=== PATIENT | male | born 2000 | race African-American/Black ===

== ENCOUNTER 2025-02-13 18:27 | Inpatient (IN) | payer MEDICAID, SELFPAY ==
[2025-02-13 18:36] VITALS: BP 149/87; PULSE 62; RESP 19; TEMP 36.9; O2SAT 97
--- NOTE | 2025-02-13 18:48 | PD.EDHA ---
ED Headache RME/HPI General Chief Complaint: Headache Stated Complaint: R SIDED FACIAL PAIN Time Seen by Provider: 02/13/25 20:03 Arrival date/time: 02/13/25 18:27 RME / HPI RME / HPI Narrative: Dr. 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 No nausea, vomiting, or photo sensitivity. No neck stiffness. No paresthesias or UE/LE weakness. No previous similar episodes. PMH includes Crohn's disease, childhood asthma. PSH includes appendectomy, ACLS repair. No illicit drug or alcohol use. NKDA. Related Data Allergies Allergy/AdvReac Type Severity Reaction Status Date / Time No Known Allergies Allergy Verified 02/13/25 18:31 Review of Systems Review of Systems Systems Reviewed: All systems reviewed, normal except as documented Past Medical History Social History SMOKING STATUS: Current every day smoker ED Exam Narrative Physical exam: GENERAL APPEARANCE: alert and oriented x 4, nontoxic, well-developed, well-nourished, complains of right periorbital headache and visual disturbance, no acute distress VITALS: All vitals were reviewed and the pulse ox is 97% on room air, which is normal according to my interpretation. HEENT: Normocephalic, atraumatic; tenderness to palpation along the right TMJ joint; pupils equal, round, reactive to light; EOMI; allodynia to the right temporal region, manual tonometry is normal, no nystagmus, optic disc margins are sharp, visual mcdowell are grossly normal; mucous membranes pink, moist; oropharynx clear NECK: Supple LUNGS: CTABL; no wheezes, no rales, no rhonchi HEART: Regular rate, regular rhythm; normal S1, S2; no murmurs ABDOMEN: non distended; soft, no tenderness BACK: no CVA tenderness EXTREMITIES: atraumatic; no edema NEUROLOGIC: awake; alert and oriented x4; cranial nerves II-XII grossly intact; no focal sensory or motor deficits PSYCHIATRIC: appropriate mood and affect SKIN: warm, dry, normal color; no rashes Course Course Course Narrative: 184: Stroke alert initiated. Quality Measures none Orders Category Date Time Status Bedside Blood Glucose NOW Care 02/13/25 18:50 Active Pharmacy Services Representative NOW Care 02/13/25 18:50 Active Continuous Pulse Oximetry NOW Care 02/13/25 18:50 Completed EKG (ED ONLY) *Do not use* NOW Care 02/13/25 18:50 Completed In and Out Catheter NEEDED Care 02/13/25 18:50 Active Insert IV NOW Care 02/13/25 18:50 Active NIH Stroke Scale now Care 02/13/25 18:50 Active NPO NOW Care 02/13/25 18:50 Active Neuro Check Q1HR Care 02/13/25 18:50 Active Nurse Swallow Screen x1 Care 02/13/25 18:50 Active Consult to Neurology / Tele-Neurology Routine Cons 02/13/25 18:[address] angio stroke protocol Stat Exams 02/13/25 18:[address] stroke protocol Stat Exams 02/13/25 18:50 Completed EKG (ED Only) Stat Exams 02/13/25 18:50 Draft XR chest 1V portable Stat Exams 02/13/25 18:50 Completed CBC Stat Lab 02/13/25 18:55 Completed Comprehensive Metabolic Panel Stat Lab 02/13/25 18:55 Completed Drug Screen,Urine Stat Lab 02/13/25 18:50 Ordered ESR [Sed Rate (ESR)] Stat Lab 02/13/25 18:55 Completed ESR [Sed Rate (ESR)] Stat Lab 02/13/25 20:06 Ordered Magnesium Stat Lab 02/13/25 18:55 Completed Partial Thromboplastin Time Stat Lab 02/13/25 18:55 Completed Prothrombin Time with INR Stat Lab 02/13/25 18:55 Completed Troponin I Stat Lab 02/13/25 18:55 Completed Urinalysis, C/S if Indicated Stat Lab 02/13/25 18:50 Ordered Aspirin Med 02/13/25 20:16 Discontinued 325 mg PO X1 ONE Labetalol IV [Trandate IV] Med 02/13/25 18:50 Active 10 mg IVP Q15M PRN Ondansetron Inj [Zofran Inj] Med 02/13/25 18:50 Active 4 mg IVP Q4HR PRN Proparacaine Op Estella 0.5% [Alcaine Op Estella 0.5%] Med 02/13/25 18:54 Discontinued See Dose Instructions RIGHT EYE X1 ONE Sodium Chloride 0.9% 1000 ml [Ns] 1,000 ml Med 02/13/25 19:00 Active IV 100 mls/hr Oxygen Delivery NOW RT 02/13/25 18:50 Active Vital Signs Vital signs: Vital Signs Temperature 98.5 F 02/13/25 18:36 Pulse Rate 62 02/13/25 18:36 Respiratory Rate 19 02/13/25 18:36 Blood Pressure 149/87 H 02/13/25 18:36 Pulse Oximetry (%) 97 02/13/25 18:36 Oxygen Delivery Method Mechanical Ventilation 02/13/25 18:36 Headache MDM Narrative MDM Narrative:: Scribe Attestation: 02/13/25 - Octavia Dunn am scribing for and in the presence of Dr. Lara. 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 No nausea, vomiting, or photo sensitivity. Please see PE findings. CBC unremarkable. Coagulation profile normal. Chemistries demonstrate mildly elevated calcium 10.3. EKG without signs of ischemia or pericarditis. CT brain demonstrates ?left temporal infarct. CTA head and neck unremarkable. Patient underwent stroke protocol and teleneurology consulted, will initiate aspirin therapy and adm for further stroke work-up. There may be an underlying autoimmune inflammatory component due to the patient's history of Crohn's disease. Additional etiologies include complex migraine headache. Dx: Complex migraine, r/o CVA Patient data External records reviewed:: [facility] previous records (Per chart review, patient has no previous ED visits or admissions to this facility.) Clinical information provided by:: patient Social determinants that could affect healthcare access:: none Patient has the following chronic illnesses:: Crohn's disease How is presenting disease/condition affected by chronic disease/condition?: uneffected by Evaluation data The following diagnostics were reviewed and interpreted by me:: lab results, radiology exam(s) and EKG tracing(s) Lab and/or radiology exams considered but not ordered:: none Interpretation Summary: EKG done at 1940, sinus bradycardia, rate of 55, no acute pathological ST segment changes, no ectopy, normal intervals, right axis deviation, incomplete RBBB, according to my interpretation. -------- [place] [facility] Report Signed Patient: AL SABILLONMOND [facility]. Record#: [id number] Birthdate: 2000 Age/Sex: 24 / M Location: [facility] Attending Dr: Ordering Physician: Gautam Sparks DO Date of Service: 02/13/25 Procedure(s): CT stroke protocol Accession Number(s): [id number] cc: Gautam Sparks DO; Ramirez Cheng MD~ Examination: CT brain head without contrast. 2-D sagittal coronal reconstructions Date and time of exam:February 13, 2025 at 1857 hrs. Indications: Stroke alert, onset focal neurologic deficit today CTDI: vol (mGy):57.4 DLP: (mGycm):1169 Technique: Multiple CT axial sections of the brain have been obtained, 5 mm slice thickness. Contrast has not been administered. 2-D sagittal, coronal reconstructions have been obtained Low dose protocols were performed. One or more of the following dose reduction techniques were used; automated exposure control, adjustment of the mA and/or KV according to patient size, use of iterative reconstruction technique. Findings: No significant ventricular enlargement. There is subtle low density in the left temporal lobe, axial image 29, consider acute nonhemorrhagic infarct at this level Intra-axial or extra-axial hemorrhage density is not seen. No mass effect or midline shift Basal cisterns are not remarkable. Fourth ventricle is midline. Cranial vault intact. Impression: There is subtle low density in the left temporal lobe, axial image 29, consider acute nonhemorrhagic infarct at this level, the appearance should be clinically correlated No acute hemorrhage or mass effect Dictated By: Ramirez Cheng MD Signed By: <Electronically signed by Ramirez Cheng MD in > 02/13/25 190 [facility] [facility] Signed Patient: AMMY SABILLON [facility]. Record#: [id number] Birthdate: 2000 Age/Sex: 24 / M Location: [facility] Attending Dr: Ordering Physician: Gautam Sparks DO Date of Service: 02/13/25 Procedure(s): CT angio stroke protocol Accession Number(s): [id number] cc: Gautam Sparks DO; Ramirez Cheng MD~ Examination: CTA carotids with intravenous contrast CTA brain, head with intravenous contrast. 2-D sagittal, coronal reconstructions. 3-D reconstructions. Exam date and time: July 16, 2024, 1903 hrs. Indications: Stroke alert, onset focal neurologic deficit today CTDI: vol (mGy) 38.35 DLP: (mGycm) 581 Technique: Multiple CTA axial brain, head carotid images post intravenous contrast injection 75 cc, Isovue-[id number]. 2-D sagittal, coronal reconstructions. 3-D reconstructions, 3-D post processing including vascular maximum intensity projection images. Low dose protocols were performed. One or more of the following dose reduction techniques were used; automated exposure control, adjustment of the mA and/or KV according to patient size, use of iterative reconstruction technique. Findings: 14 mm left thyroid nodule No significant common carotid carotid bifurcation or internal carotid artery stenoses. Codominant vertebral arteries with no stenoses No cerebral large vessel arterial occlusions or thrombus Impression: 14 mm left thyroid nodule No carotid or vertebral artery stenoses. No cerebral large vessel arterial occlusions or thrombus As clinically warranted, MRI brain without contrast follow-up would best assess for demyelinating disease Dictated By: Ramirez Cheng MD Signed By: <Electronically signed by Ramirez Cheng MD in OV> 02/13/251942 [facility] Signed Patient: AMMY SABILLON [facility] Record#: [id number] Birthdate: 2000 Age/Sex: 24 / M Location: [facility] Attending Dr: Ordering Physician: Gautam Sparks DO Date of Service: 02/13/25 Procedure(s): XR chest 1V portable Accession Number(s): [id number] cc: Gautam Sparks DO; Ramirez Cheng MD~ Examination: AP chest single view Technique: AP portable semiupright chest single view Date and time: February 13, 2025, 1920 hrs. Indications: Stroke alert today Findings: Normal heart size. No aspiration pneumonia. The lungs are clear. The osseous structures are intact. Impression: No active disease. Dictated By: Ramirez Cheng MD Signed By: <Electronically signed by Ramirez Cheng MD in OV> 02/13/25 1944 Medications / Prescriptions Medications or Prescriptions considered but not ordered:: none Medication administrations:: Medication Administration History Sodium Chloride (Ns) 1,000 mls @ 100 mls/hr IV .Q10H SERVANDO Stop: 03/15/25 18:59 Last Admin: 02/13/25 19:52 Dose: 100 mls/hr Documented By: CCT Labetalol HCl (Labetalol Inj 5 Mg/Ml Vial 20 Ml) 10 mg IVP Q15M PRN PRN Reason: HYPERTENSION Ondansetron HCl (Ondansetron Inj 2 Mg/Ml Inj 2 Ml) 4 mg IVP Q4HR PRN PRN Reason: NAUSEA OR VOMITING Stop: 03/15/25 18:49 Discontinued Medications Aspirin (Aspirin 325 Mg Tablet) 325 mg PO X1 ONE Stop: 02/13/25 20:17 Last Admin: 02/13/25 20:38 Dose: 325 mg Documented By: CCT Proparacaine HCl (Proparacaine Op Estella 0.5% 15 Ml Btl) 0 drop RIGHT EYE X1 ONE Stop: 02/13/25 18:55 Last Admin: 02/13/25 19:52 Dose: 2 drop Documented By: CCT Comments: Administered by Dr. Henson see above Consultations Consultation(s) initiated? (list below): Yes Consultation #1 (Physician, Specialty, Details): Discussed case with Dr. Jensen from teleneurology regarding consultation. Discussed patients ED course, exam findings, labs, and radiology results. Does not recommend tPA due to being outside the time window. Recommends admission for further stroke work-up. Time: 19:28 Consultation #2 (Physician, Specialty, Details): Discussed case with the resident physician, attending Dr. Velazquez from Hospitalist service regarding admission. Discussed patients ED course, exam findings, labs, and radiology results. The Hospitalist agrees to accept the patient for admission. Time: 19:47 Diagnosis Differential diagnosis headache: migraine, tension headache, subarachnoid hemorrhage, headache and other (CVA, TIA) Most likely diagnosis given after review of the tests above:: see clinical impression below Admission Indicated Admission indicated?: indicated Admission Request Was there a request for admission?: Yes Admission Attestation Admission request attestation: Discussed case with [] from Hospitalist service regarding admission. Discussed patients ED course, exam findings, labs, and radiology results. The Hospitalist [agrees,declines] to accept the patient for admission. Disposition Plan Disposition Plan: Admit Critical Care Time Critical Care Time Critical Care Time: Yes Total Critical Care Time (min.): 35 Attestation: The high probability of sudden, clinically significant deterioration in the patient?s condition required the highest level of my preparedness to intervene urgently. The services I provided to this patient were to treat and/or prevent clinically significant deterioration. Services included the following: chart data review, reviewing nursing notes and/or old charts, documentation time, regulatory services consultant collaboration regarding findings and treatment options, medication orders and management, direct patient care, vital sign assessments and ordering, interpreting and reviewing diagnostic studies and lab tests. Aggregate critical care time includes only time during which I was engaged in work directly related to the patient?s care, as described above, whether at bedside or elsewhere in the Emergency Department. It did not include time spent performing other reported procedures or the services of residents, students, nurses or physician assistants. Discharge Plan Plan Patient Disposition: Admit Acute Care w/in Hospital Problem List Clinical Impression: Migraine headache Patient/Caregiver Discharge Instructions Print Language: Panamanian Stand Alone Forms: Cynthia Award Info., Patient Portal Info Letter
--- NOTE | 2025-02-13 18:50 | EKG_ITS ---
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
[2025-02-13 19:15] VITALS: PULSE 62
[2025-02-13 19:17] LABS: Sed Rate (ESR) 7 mm/hr (0-15)
[2025-02-13 19:19] LABS: Basophils # (Auto) 0.0 Thou/mm3 (0.0-0.2); Basophils % (Auto) 0 % (0-2.5); Eosinophils # (Auto) 0.3 Thou/mm3 (0.0-0.5); Eosinophils % (Auto) 3 % (0-10); Hematocrit 45.3 % (41.0-53.0); Hemoglobin 16.0 g/dL (13.5-16.0); Immature Granulocytes Auto 0.02 Thou/mm3 (0.00-0.00); Lymphocytes # (Auto) 3.2 Thou/mm3 (1.0-4.8); Lymphocytes % (Auto) 32 % (10-50); Mean Corpuscular HGB Conc 35.3 g/dl (31.0-37.0); Mean Corpuscular Hemoglobin 32.7 pg (25.0-35.0); Mean Corpuscular Volume 92 fL (80-100); Monocytes # (Auto) 0.7 Thou/mm3 (0.0-0.8); Monocytes % (Auto) 7 % (0-12); Neutrophils # (Auto) 5.7 Thou/mm3 (1.8-7.7); Neutrophils % (Auto) 57 % (37-80); Nucleated Red Blood Cell # 0.00 Thou/mm3 (0.00-0.00); Nucleated Red Blood Cell % 0 /100 WBC (0); Platelet Count 206 Thou/mm3 (140-440); RDW Standard Deviation 45.5 fL (35.1-43.9); Red Blood Count 4.90 Miln/mm3 (4.50-5.90); White Blood Count 9.9 Thou/mm3 (3.8-10.6)
[2025-02-13 19:25] VITALS: PULSE 62; RESP 18; RESP 99; BMI 31.6
[2025-02-13 19:30] LABS: INR 1.0 (0.9-1.3); Partial Thromboplastin Time 30.3 Seconds (22.0-36.0); Prothrombin Time 11.2 Seconds (9.0-12.2)
--- NOTE | 2025-02-13 19:32 | ESCONSULT_ITS ---
Tele Neuro Consultation Consultation Date 02/13/25 Most Recent Vital Signs Last Vital Signs Temp 98.5 F 02/13/25 18:36 Pulse 62 02/13/25 19:15 Resp 19 02/13/25 18:36 BP 149/87 H 02/13/25 18:36 Pulse Ox 97 02/13/25 18:36 O2 Del Method Mechanical Ventilation 02/13/25 18:36 Laboratory-Coagulation Panel PT 11.2 Seconds (9.0-12.2) 02/13/25 18:55 INR 1.0 (0.9-1.3) 02/13/25 18:55 APTT 30.3 Seconds (22.0-36.0) 02/13/25 18:55 Consultation Narrative [facility] Tele[facility]urology Consult Services Patient Name:???Gerry [place] Date of :???2000 Identification Number:??? Date of Service:???02/13/2025 18:52:57 Diagnosis:?R51.9 - Headache, unspecified ?H53.8 - Blurred Vision ?I63.89 - Cerebrovascular accident (CVA) due to other mechanism ([facility]) Impression: ?24 yo RH M with PMH of asthma, Crohns disease, presents to ED with right sided SEGURA with right sided blurred vision for several days. ?NIHSS of 1 for right sided sensation deficit of the hemibody. ?CTH without hemorrhage, possible asymmetric hypodensity of left temporal lobe. Outside thrombolytic window. ?Differential includes complex migraine, acute ischemic stroke, cerebral venous thrombosis, vs encephalitis. ?Recommend symptomatic treatment of SEGURA, initiating aspirin 325mg now, and MRI brain w/wo and MR head venogram to rule out acute process. Our recommendations are outlined below. Recommendations: ? Stroke/Telemetry Floor ? Neuro Checks (Q4) ? Bedside Swallow Eval ? DVT Prophylaxis ? IV Fluids, Normal Saline ? Euglycemia and Avoid Hyperthermia (PRN Acetaminophen) ? Initiate or continue Aspirin 325 MG daily Sign Out: ? Discussed with Emergency Department Provider Advanced Imaging:CTA Head and Neck Completed. LVO:No Patient is not a candidate for BERNARD Metrics: Last Known Well: Unknown Dispatch Time: 02/13/2025 18:52:57 Arrival Time: 02/13/2025 18:27:15 Initial Response Time: 02/13/2025 18:59:24Symptoms: headache. Initial patient interaction: 02/13/2025 19:06:43 NIHSS Assessment Completed: 02/13/2025 19:24:34Patient is not a candidate for Thrombolytic. Thrombolytic Medical Decision: 02/13/2025 19:24:35Patient was not deemed candidate for Thrombolytic because of following reasons: LKW outside 4.[address] Head: I personally reviewed all the CT images that were available to me and it showed: no hemorrhage Primary Provider Notified of Diagnostic Impression and Management Plan on: 02/13/2025 19:31:32 History of Present Illness:Patient is a 24 year old Male. Patient was brought by private transportation with symptoms of headache. 24 yo RH M with PMH of asthma, Crohns disease, presents to ED with right sided SEGURA with right sided blurred vision. Patient reports onset of intermittent headaches that are global and severe at times. He reports taking a hot shower seems to help but headaches can last for hours. The headache is associated with nausea, and right sided blurred vision. Also feels like chewing is harder lately but also reports significant dental problems including pain which exacerbates his symptoms. ? Past Medical History: ?There is no history of Hypertension ?There is no history of Diabetes Mellitus ?There is no history of Stroke ?There is no history of Seizures ?There is no history of Migraine Headaches Medications: No Anticoagulant use? No Antiplatelet use Reviewed EMR for current medications Allergies:? NKDA Social History: Smoking: No Alcohol Use: No Family History: There Is Family History Of:Migraines, cancer, diabetes, IBD, Crohns There is no family history of premature cerebrovascular disease pertinent to this consultation ROS : 14 Points Review of Systems was performed and was negative except mentioned in HPI. Past Surgical History: There Is No Surgical History Contributory To Today?s Visit ? Examination: BP(157/86),?Pulse(78),?Blood Glucose(90) 1A: Level of Consciousness - Alert; keenly responsive?+ 0 1B: Ask Month and Age - Both Questions Right?+ 0 1C: Blink Eyes & Squeeze Hands - Performs Both Tasks?+ 0 2: Test Horizontal Extraocular Movements - Normal?+ 0 3: Test Visual Holley - No Visual Loss?+ 0 4: Test Facial Palsy (Use Grimace if Obtunded) - Normal symmetry?+ 0 5A: Test Left Arm Motor Drift - No Drift for 10 Seconds?+ 0 5B: Test Right Arm Motor Drift - No Drift for 10 Seconds?+ 0 6A: Test Left Leg Motor Drift - No Drift for 5 Seconds?+ 0 6B: Test Right Leg Motor Drift - No Drift for 5 Seconds?+ 0 7: Test Limb Ataxia (FNF/Heel-Olvera) - No Ataxia?+ 0 8: Test Sensation - Mild-Moderate Loss: Less Sharp/More Dull?+ 1 9: Test Language/Aphasia - Normal; No aphasia?+ 0 10: Test Dysarthria - Normal?+ 0 11: Test Extinction/Inattention - No abnormality?+ 0 NIHSS Score:?1 NIHSS Free Text :?right sided body sensation deficit Pre-Morbid Modified [place] Scale: 0 Points = No symptoms at all Spoke with :?Dr. Sparks This consult was conducted in real time using interactive audio and video technology. Patient was informed of the technology being used for this visit and agreed to proceed. Patient located in hospital and provider located at home/office setting. Patient is being evaluated for possible acute neurologic impairment and high probability of imminent or life-threatening deterioration. I spent total of 51 minutes providing care to this patient, including time for face to face visit via telemedicine, review of medical records, imaging studies and discussion of findings with providers, the patient and/or family. Dr Jayson Jensen [facility] For Inpatient follow-up with [facility] physician please call [facility] at . As we are not an outpatient service for any post hospital discharge needs please contact the hospital for assistance. If you have any questions for the [facility] physicians or need to reconsul t for clinical or diagnostic changes please contact us via [facility] at . Signature :Diego Jensen
[2025-02-13 19:36] LABS: Alanine Aminotransferase 10 U/L (10-49); Albumin, Serum 5.1 gm/dL (3.5-5.0); Albumin/Globulin Ratio 2.3 (1.2-2.2); Alkaline Phosphatase 44 U/L (46-116); Anion Gap 9 (7-16); Aspartate Amino Transferase 21 U/L (0-34); BUN/Creatinine Ratio 6 Ratio (12-20); Bilirubin,Total 0.5 mg/dL (0.3-1.2); Blood Urea Nitrogen < 5 mg/dL (9-23); Calcium 10.3 mg/dL (8.3-10.6); Calcium (Corrected) 10.3 mg/dL (8.5-10.1); Carbon Dioxide 25.7 mMol/L (20.0-31.0); Chloride 106 mMol/L (98-107); Creatinine (Component) 0.8 mg/dL (0.6-1.3); Globulin 2.2 gm/dL (2.3-3.5); Glucose 89 mg/dL (74-106); Magnesium 1.9 mg/dL (1.6-2.6); Osmolality,Calculated 277 (275-295); Potassium 4.1 mMol/L (3.4-5.1); Sodium 141 mMol/L (136-145); Total Protein 7.3 gm/dL (5.7-8.2); Troponin I < 0.002 ng/mL (0.0-0.045); eGFR > 60 See Note
[2025-02-13] MEDS: SODIUM CHLORIDE 0.9% 1000 ML 1,000 ML 100 ML IV (19:52)
[2025-02-13] MEDS: PROPARACAINE OP SOL 0.5% 15 ML BTL RIGHT EYE (19:52)
--- NOTE | 2025-02-13 19:56 | PC.NURSE ---
Hospitalist at bedside, resident Dr. Up and Dr. Navarro.
[2025-02-13 21:20] VITALS: BP 136/75; PULSE 55; RESP 18; TEMP 36.7; O2SAT 96
[2025-02-13 21:32] LABS: Collection Type, Urine Clean Catch
[2025-02-13 21:41] LABS: Bilirubin,Urine Negative (Negative); Blood,Urine Negative (Negative); Clarity,Urine Clear (Clear/Hazy); Color,Urine Lt-Yellow (Lt Yel-Yel); Culture Indicated,Urine Not Indicated; Glucose, Urine Negative (Negative); Ketones,Urine Negative (Negative); Leukocyte Esterase,Urine Negative (Negative); Nitrite,Urine Negative (Negative); PH,Urine 8.0 (5.0-7.0); Protein,Urine Negative (Neg - Trace); RBC,Urine 3 /hpf (0-3); Specific Gravity,Urine 1.047 (1.001-1.035); Squamous Epithelial Cell,Urine < 1 /hpf (0-5); Urobilinogen,Urine Negative mg/dL (0.0-1.0); WBC,Urine 2 /hpf (0-5)
[2025-02-13 21:54] LABS: Amphetamine/Methamp Scrn,U Negative (Negative); Barbiturate Screen,Urine Negative (Negative); Benzodiazepines Screen,Urine Negative (Negative); Benzoylecgonine Screen, Ur Negative (Negative); Fentanyl Screen,Urine Negative (Negative); Opiate Screen,Urine Negative (Negative); THC Screen,Urine Positive (Negative)
--- NOTE | 2025-02-13 22:12 | PC.NURSE ---
Report given to ALIZA Casillas/Elissa RN
--- NOTE | 2025-02-13 22:24 | PD.RESHP ---
Documentation for date of: 02/13/25 [facility] History of Present Illness Chief complaint: Headache and blurry vision History of present illness: Mr. Montana is a 24-year-old male with a past medical history of Crohn's disease and asthma presents to the emergency department on 02/13/2025 with complaints of right-sided headache and blurry vision. The patient reports that for the past 2-3 days, he has been experiencing right-sided temporal headache and retro-orbital pain, associated with blurry vision. He describes the headache as a stabbing sensation located around the temporal bone, lasting approximately 10-15 minutes, and notes that the temples are sensitive to touch. The headache improves with hot showers. He denies jaw claudication. The blurry vision is confined to the right eye and started acutely 1 day ago. The patient describes periorbital pain but denies pain with eye movement or photophobia. He denies nausea, vomiting, phonophobia, chest pain, shortness of breath, lightheadedness, fatigue, and chills. The patient has a history of chronic headaches, for which he does not take medication due to concerns about potential addiction with [id number] pain relievers. He also reports a family history of chronic headaches. ED Course: -Initial vitals were BP 149/87, pulse 62, RR 19, temp 98.5, saturating well on room air. -Labs significant for positive for for marijuana - Imaging included chest x-ray showed no active disease, head CT showed subtle low density in the left temporal lobe, head/neck CTA no coronary artery or vertebral artery stenosis. EKJ shows sinus bradycardia at rate 55 -In the ED, patient was given 1 L NS, eyedrop, aspirin 325 mg X1, Reglan 10 mg X1 -Patient was admitted for CVA workup. Review of Systems Review of systems otherwise negative except what is mentioned above. Past Medical History: Childhood asthma, Crohn's disease, anxiety Family History: Migraines Surgical History: ACLS repair and appendectomy Social History: Marijuana use for pain, denies history of smoking, denies current alcohol use. Patient newly move to [facility] for a job, currently living in hotel with his sister. Current Medications: loperamide Allergies: No known drug allergies Exam Vital Signs Temp Pulse Resp BP Pulse Ox O2 Del Method 98.1 F 55 L 18 136/75 H 96 Room Air 02/13/25 21:20 02/13/25 21:20 02/13/25 21:20 02/13/25 21:20 02/13/25 21:20 02/13/25 21:20 Narrative Exam General: Alert, no acute distress.Conversational and non-toxic appearing. Skin: Warm, dry, intact. No rash or ecchymoses. Head: Normocephalic, atraumatic. No tenderness to palpation over the right temporal region, with increased sensitivity around the temples. No visible swelling or deformities. Eye: Normal conjunctiva, PERRL. Throat: Oral mucosa moist. No obvious lesions in oropharynx. Cardiovascular: Regular rate and rhythm, no murmur, +S1/S2. Respiratory: Lungs are clear to auscultation, respirations unlabored, no crackles, no wheezing. Gastrointestinal: Soft, nontender, non-distended. No guarding or rebound tenderness. Extremities: No edema, no cyanosis, no clubbing. Neuro: Alert and oriented x3.No focal deficits observed. Conversant, moving all extremities. No overt cerebellar signs/incoordination. Decrease sensation to light touch bilateral right-sided upper and lower extremities. UE and LE strength 55/5 bilaterally Psychiatric: Cooperative, appropriate affect Results: Labs 02/14/25 05:37 02/14/25 05:37 Labs: Short CBC 02/13/25 Range/Units 18:55 WBC 9.9 (3.8-10.6) Thou/mm3 Hgb 16.0 (13.5-16.0) g/dL Hct 45.3 (41.0-53.0) % Plt Count 206 (140-440) Thou/mm3 [facility] 02/13/25 18:55 Sodium 141 Potassium 4.1 Chloride 106 Carbon Dioxide 25.7 BUN < 5 L Creatinine 0.8 Glucose 89 Calcium 10.3 Cardiac Enzymes 02/13/25 Range/Units 18:55 Troponin I < 0.002 (0.0-0.045) ng/mL Liver Function 02/13/25 Range/Units 18:55 Total Bilirubin 0.5 (0.3-1.2) mg/dL AST 21 (0-34) U/L ALT 10 (10-49) U/L Alkaline Phosphatase 44 L (46-116) U/L Albumin 5.1 H (3.5-5.0) gm/dL Urine 02/13/25 Range/Units 21:20 Urine Color Lt-Yellow (Lt Yel-Yel) Urine Clarity Clear (Clear/Hazy) Urine pH 8.0 H (5.0-7.0) Ur Specific [place] 1.047 H (1.001-1.035) Urine Protein Negative (Neg - Trace) Urine Glucose (UA) Negative (Negative) Quality Measures Quality Measures none Medications Home Medications and Allergies Home Medications ?Medication ?Instructions ?Recorded ?Confirmed ?Type famotidine 40 mg PO DAILY nausea 02/14/25 02/14/25 History loperamide 2 cap PO DAILY PRN diarrhea 02/14/25 02/14/25 History Allergies Allergy/AdvReac Type Severity Reaction Status Date / Time No Known Allergies Allergy Verified 02/14/25 06:32 Visit Medications Aspirin (Aspirin Ec 81 Mg Tabec) 81 mg PO QDAY SERVANDO Stop: 03/16/25 08:59 Heparin Sodium (Porcine) (Heparin Sod Inj 5000 Unit/Ml Vial) 5,000 unit SC Q8HR SERVANDO Stop: 02/27/25 22:59 Sodium Chloride (Ns) 1,000 mls @ 100 mls/hr IV .Q10H SERVANDO Stop: 03/15/25 18:59 Last Admin: 02/13/25 19:52 Dose: 100 mls/hr Labetalol HCl (Labetalol Inj 5 Mg/Ml Vial 20 Ml) 10 mg IVP Q15M PRN PRN Reason: HYPERTENSION Ondansetron HCl (Ondansetron Inj 2 Mg/Ml Inj 2 Ml) 4 mg IVP Q4HR PRN PRN Reason: NAUSEA OR VOMITING Stop: 03/15/25 18:49 Discontinued Medications Aspirin (Aspirin 325 Mg Tablet) 325 mg PO X1 ONE Stop: 02/13/25 20:17 Last Admin: 02/13/25 20:38 Dose: 325 mg Dexamethasone Sodium Phosphate (10 mg/ Sodium Chloride) 101 mls @ 101 mls/hr IV X1 ONE Stop: 02/13/25 22:21 Ketorolac Tromethamine (Ketorolac Inj 30 Mg/Ml Vial) 30 mg IVP X1 ONE Stop: 02/13/25 22:21 Metoclopramide HCl (Metoclopramide Inj 5 Mg/Ml Vial 2 Ml) 10 mg IVP X1 ONE; Protocol Stop: 02/13/25 22:21 Proparacaine HCl (Proparacaine Op Estella 0.5% 15 Ml Btl) 0 drop RIGHT EYE X1 ONE Stop: 02/13/25 18:55 Last Admin: 02/13/25 19:52 Dose: 2 drop Assessment & Plan Plan Mr. Montana is a 24-year-old male with a past medical history of Crohn's disease, anxiety asthma presents to the emergency department on 02/13/2025 with complaints of right-sided headache and blurry vision. Admitted for CVA work up in the setting of migraine headache #CVA workup #Status migrainosus DDX: complex migraine, stroke r/o, giant cell arteries Patient presented with acute onset worsening headache, right sided retro-orbital pain with blurry vision and decreased sensation to light touch in right upper and lower extremity of physical examination. Concern for possible stroke vs complicated migraine CT head showed is subtle low density in the left temporal lobe, consider acute nonhemorrhagic infarct at this level CTA head/neck showed no carotid or vertebral artery stenosis and no cerebral large vessel arterial occlusions or thrombus Ocular pressure normal bilaterally. Tele neuro consulter reccommended admission for stroke r/o NIHSS Score:?1 -Neurologist Dr. Davenport was consulted and will follow, appreciate recommendations -Admitted to Telemetry -Head of bed elevation >30 degrees -Maintain euglycemia and normal temperature -Q4H neuro checks - Permissive HTN, labetalol on board for BP>220/120 -Nurse swallow screen -PT evaluation -Echocardiography with bubble study ordered -MRI brain with and without contrast ordered -Hemoglobin A1c -Lipid panel -TSH level -Start aspirin 81 mg daily, loading dose given ? Follow-up ESR and CRP # Asymptomatic bradycardia On admission EKG showed sinus bradycardia with a rate of 55. - Continue to monitor #Hx of anxiety Pt has chronic history of anxiety. Earlier today he had severe anxiety fir which rapid was called. See event note. Sister confirmed hx of anxiety untreated. - given x1 ativan and Benadryl IV, symptoms resolves -Started Ativan 1 mg every 6 hours as needed -Encouraged family to be at bedside # Hx Crohn's disease Patient reported is hx Crohn's that is well-controlled, not on any medications. Occasionally takes loperamide and another med for CD that he does not recall. -Pending med recc Hospital management: Lines: peripheral IV Diet: Regular DVT prophylaxis: Heparin SC Disposition: Telemetry for CVA workup CODE STATUS: Full code Patient seen and assessed under supervision of attending physician and discuss with senior resident Dr. Up PGY-2 Laverne Navarro MD PGY-1, Internal Medicine Please note: this document was transcribed using voice recognition technology; minor inaccuracies may be present. Attending Provider Attestation/Addendum After examination of the patient and review of the clinical data I feel that this patient needs admission to the hospital for further treatment/evaluation. Plan of care discussed with patient and is in agreement. I Ankur Velazquez MD, attest that I was physically present for henderson portions of evaluation, and examined patient, labs and imagings and plan of care were discussed with IM residents team, and I agree with the findings and plans documented above.
[2025-02-13] MEDS: DEXAMETHASONE INJ 10 MG in SODIUM CHLORIDE 0.9% 100 ML 101 MG IV (22:57)
[2025-02-13] MEDS: METOCLOPRAMIDE INJ 5 MG/ML VIAL 2 ML 10 MG IVP (22:58)
[2025-02-13] MEDS: HEPARIN SOD INJ 5000 UNIT/ML VIAL SC (22:58)
[2025-02-13] MEDS: KETOROLAC INJ 30 MG/ML VIAL IVP (22:58)
--- NOTE | 2025-02-13 23:02 | ECHO_ITS ---
Transthoracic Echo Report Ht (in): 72 Wt (lb): 233 Exam Location: Echo Lab Status: Inpatient Punch Out Crew Member: Leslie Hardwick Indications: Procedure Performed: BP: 110 / 53 HR: 61 Technical Quality: Technically difficult study MEASUREMENTS (Male / Female) Normal Values 2D ECHO LV Diastolic Diameter PLAX 4.7 cm 4.2 - 5.9 / 3.9 - 5.3 cm LV Systolic Diameter PLAX 3.0 cm IVS Diastolic Thickness 0.9 cm 0.6 - 1.0 / 0.6 - 0.9 cm LVPW Diastolic Thickness 1.1 cm 0.6 - 1.0 / 0.6 - 0.9 cm LV Relative Wall Thickness 0.4 LVOT Diameter 2.4 cm Aortic Root Diameter 3.3 cm LV Ejection Fraction MOD BP 49.9 % >= 55 % LV Cardiac Index MOD BP 1518.9 cm?/min?m? LV Ejection Fraction MOD 4C 51.0 % LV Cardiac Index MOD 4C 1459.1 cm?/min?m? LV Ejection Fraction 4C AL 51.9 % LV Cardiac Index 4C AL 1524.1 cm?/min?m? LV Ejection Fraction MOD 2C 50.5 % LV Cardiac Index MOD 2C 1563.1 cm?/min?m? LV Ejection Fraction 2C AL 53.3 % LV Cardiac Index 2C AL 1699.0 cm?/min?m? LA Volume Index 15.3 cm?/m? 16 - 28 cm?/m? M-MODE Aortic Root Diameter MM 3.2 cm LA Systolic Diameter MM 4.1 cm LA Ao Ratio MM 1.3 AV Cusp Separation MM 2.2 cm DOPPLER AV Peak Velocity 132.0 cm/s AV Peak Gradient 7.0 mmHg AV Mean Gradient 3.0 mmHg AV Velocity Time Integral 34.8 cm LVOT Peak Velocity 92.4 cm/s LVOT Peak Gradient 3.4 mmHg LVOT Velocity Time Integral 22.3 cm LVOT Cardiac Index 2623.8 cm?/min?m? AV Area Cont Eq vti 2.9 cm? AV Area Cont Eq pk 3.2 cm? MV Area PHT 3.2 cm? Mitral E Point Velocity 63.5 cm/s Mitral A Point Velocity 32.5 cm/s Mitral E to A Ratio 2.0 LV E' Lateral Velocity 16.3 cm/s Mitral E to LV E' Lateral Ratio 3.9 LV E' Septal Velocity 10.2 cm/s Mitral E to LV E' Septal Ratio 6.2 TR Peak Velocity 170.0 cm/s TR Peak Gradient 11.6 mmHg PV Peak Velocity 125.0 cm/s PV Peak Gradient 6.3 mmHg FINDINGS Left Ventricle Normal left ventricular size, wall thickness, systolic function with no obvious regional wall motion abnormalities. Normal left ventricular diastolic function. The ejection fraction is visually estimated at 55- 60%. Right Ventricle The right ventricle is normal in size and systolic function. Left Atrium The left atrium is normal by two-dimensional, color flow and Doppler imaging with no structural abnormalities, no thrombus formation present. Right Atrium The right atrium is normal by two-dimensional imaging, color flow and Doppler imaging with no structural abnormalities, no thrombus formation present. Atrial Septum The interatrial septum appears normal with no evidence of a shunt. Aorta The aorta is normal by two-dimensional, color flow and Doppler interrogation. Mitral Valve The mitral valve is normal by two-dimensional, color flow and Doppler interrogation. There is no significant mitral valve regurgitation, stenosis or prolapse. Aortic Valve The aortic valve is trileaflet and normal by two-dimensional, color flow and Doppler interrogation. There is no significant aortic valve regurgitation. Tricuspid Valve The tricuspid valve is normal by two-dimensional, color flow and Doppler interrogation. There is mild tricuspid valve regurgitation. Pulmonic Valve The pulmonic valve is not well visualized. There is no significant pulmonic valve regurgitation. Vessels The pulmonary artery appears normal. The inferior vena cava pulmonary and hepatic veins appear normal. Pericardium The pericardium is normal by two-dimensional imaging. There is no significant pericardial effusion. CONCLUSIONS Indication: Stroke Negative bubble study. Normal left ventricular size and function. Approximate ejection fraction is 60%. The right ventricle is normal in size and systolic function. Trace trace tricuspid regurgitation noted. No wall motion abnormalities Shantell Joshua (Electronically Signed) Final Date: 15 February 2025 10:43
--- NOTE | 2025-02-13 23:17 | PD.VPROG1 ---
Telemedicine visit statement This visit was conducted with the use of phone was obtained on 02/13/25 at 2317. Documentation for date of: 02/13/25 Subjective Subjective Interval history: Patient is in telemetry, continues to c/o headache and retro orbital pain and blurred vision and right sided numbness. Got the Decadran, Reglan and Toradol shot few minutes ago. Virtual exam Vital Signs Temp Pulse Resp BP Pulse Ox O2 Del Method 98.1 F 55 L 18 136/75 H 96 Room Air 02/13/25 21:20 02/13/25 21:20 02/13/25 21:20 02/13/25 21:20 02/13/25 21:20 02/13/25 21:20 Objective Labs 02/13/25 18:55 02/13/25 18:55 Labs: Laboratory Results - last 24 hr 02/13/25 02/13/25 18:55 21:20 WBC 9.9 RBC 4.90 Hgb 16.0 Hct 45.3 MCV 92 MCH 32.7 MCHC 35.3 RDW Std Deviation 45.5 H Plt Count 206 Neut % (Auto) 57 Lymph % (Auto) 32 Caroline % (Auto) 7 Eos % (Auto) 3 Baso % (Auto) 0 Neut # (Auto) 5.7 Lymph # (Auto) 3.2 Caroline # (Auto) 0.7 Eos # (Auto) 0.3 Baso # (Auto) 0.0 Immature Gran # (Auto) 0.02 H Absolute Nucleated RBC 0.00 Immature Gran % 0 Nucleated RBC % 0 ESR 7 PT 11.2 INR 1.0 APTT 30.3 Sodium 141 Potassium 4.1 Chloride 106 Carbon Dioxide 25.7 Anion Gap 9 BUN < 5 L Creatinine 0.8 Estim Creat Clear Calc Not Performed. eGFR > 60 BUN/Creatinine Ratio 6 L Glucose 89 Calculated Osmolality 277 Calcium 10.3 Corrected Calcium 10.3 H Magnesium 1.9 Total Bilirubin 0.5 AST 21 ALT 10 Alkaline Phosphatase 44 L Troponin I < 0.002 Total Protein 7.3 Albumin 5.1 H Globulin 2.2 L Albumin/Globulin Ratio 2.3 H Ur Collection Type Clean Catch Urine Color Lt-Yellow Urine Clarity Clear Urine pH 8.0 H Ur Specific [place] 1.047 H Urine Protein Negative Urine Glucose (UA) Negative Urine Ketones Negative Urine Blood Negative Urine Nitrite Negative Urine Bilirubin Negative Urine Urobilinogen (Auto) Negative Ur Leukocyte Esterase Negative Urine RBC 3 Urine WBC 2 Ur Squamous Epith Cells < 1 Urine Bacteria None Ur Culture Indicated? Not Indicated Urine Opiates Screen Negative Urine Fentanyl Screen Negative Ur Barbiturates Screen Negative U Amphetamin/Meth Scrn Negative U Benzodiazepines Scrn Negative U Cocaine Metab Screen Negative U Marijuana (THC) Screen Positive A Assessment & Plan Problem List (1) Status migrainosus: Status: Acute Assessment and plan: continue with current mgt. continue to monitor closely. may consider trying GP 300 mg bid
--- NOTE | 2025-02-13 23:32 | EVENTNT_ITS ---
Documentation for date of: 02/13/25 Event Note Event Note: RR around 11:15 PM patient experiencing severe anxiety and agitation. Upon arrival, the patient was diaphoretic, restless, tachypneic, and pacing. The patient reported a sensation of detachment from the body, significant nervo usness, and generalized tingling. The patient stated that anxiety began after receiving medications on tele and expressed a desire to go home. Vitals were BP 113/73, HR 81, RR 30, O2sat 97% on room air. Interventions included encouraging relaxation and assisting with breathing techniques to address hyperventilation. The patient followed instructions and attempted to sit in a chair to reduce anxiety. The patient's sister was contacted for reassurance, and the patient was informed she would return to the hospital soon. Medications administered: Benadryl 25 mg and Ativan 1 mg to manage panic and anxiety. Ativan PRN ordered for future episodes. Patient?s anxiety has since decreased, and he appears more calm. Family encouraged to remain at bedside for support. Patient seen and assessed under supervision of attending physician and discuss with senior resident Dr. Up PGY-2 Laverne Navarro MD PGY-1, Internal Medicine Please note: this document was transcribed using voice recognition technology; minor inaccuracies may be present.
[2025-02-13 23:40] VITALS: BP 113/73; PULSE 81; RESP 30; O2SAT 97
[2025-02-14] VITALS (8 sets, daily range): BP systolic 101–129; BP diastolic 52–86; PULSE 45–95; RESP 16–98; TEMP 36.1–36.4; O2SAT 95–98
[2025-02-14] MEDS: HEPARIN SOD INJ 5000 UNIT/ML VIAL SC (05:54)
[2025-02-14 05:57] LABS: Basophils # (Auto) 0.0 Thou/mm3 (0.0-0.2); Basophils % (Auto) 0 % (0-2.5); Eosinophils # (Auto) 0.0 Thou/mm3 (0.0-0.5); Eosinophils % (Auto) 0 % (0-10); Hematocrit 45.0 % (41.0-53.0); Hemoglobin 15.4 g/dL (13.5-16.0); Immature Granulocytes Auto 0.05 Thou/mm3 (0.00-0.00); Lymphocytes # (Auto) 1.2 Thou/mm3 (1.0-4.8); Lymphocytes % (Auto) 11 % (10-50); Mean Corpuscular HGB Conc 34.2 g/dl (31.0-37.0); Mean Corpuscular Hemoglobin 31.8 pg (25.0-35.0); Mean Corpuscular Volume 93 fL (80-100); Monocytes # (Auto) 0.1 Thou/mm3 (0.0-0.8); Monocytes % (Auto) 1 % (0-12); Neutrophils # (Auto) 9.4 Thou/mm3 (1.8-7.7); Neutrophils % (Auto) 88 % (37-80); Nucleated Red Blood Cell # 0.00 Thou/mm3 (0.00-0.00); Nucleated Red Blood Cell % 0 /100 WBC (0); Platelet Count 203 Thou/mm3 (140-440); RDW Standard Deviation 45.5 fL (35.1-43.9); Red Blood Count 4.85 Miln/mm3 (4.50-5.90); White Blood Count 10.7 Thou/mm3 (3.8-10.6)
[2025-02-14 06:03] LABS: Glucose Estimated Average 103 mg/dL (80-131); Hemoglobin A1C 5.2 % Hgb (4.8-6.0)
[2025-02-14 06:38] LABS: Alanine Aminotransferase 9 U/L (10-49); Albumin, Serum 4.6 gm/dL (3.5-5.0); Albumin/Globulin Ratio 2.0 (1.2-2.2); Alkaline Phosphatase 42 U/L (46-116); Anion Gap 8 (7-16); Aspartate Amino Transferase 15 U/L (0-34); BUN/Creatinine Ratio 6 Ratio (12-20); Bilirubin,Total 0.5 mg/dL (0.3-1.2); Blood Urea Nitrogen 5 mg/dL (9-23); C-Reactive Protein < 0.5 mg/dL (0.0-0.9); Calcium 9.9 mg/dL (8.3-10.6); Calcium (Corrected) 9.9 mg/dL (8.5-10.1); Carbon Dioxide 25.7 mMol/L (20.0-31.0); Cardiac Risk Estimate 2.9 RATIO (4.0-6.7); Chloride 107 mMol/L (98-107); Cholesterol 145 mg/dL (132-200); Creatinine (Component) 0.9 mg/dL (0.6-1.3); Estimated Creatinine Clearance 157.6 mL/min (>60); Globulin 2.3 gm/dL (2.3-3.5); Glucose 121 mg/dL (74-106); HDL Cholesterol 50 mg/dL (40-60); LDL Cholesterol,Calculated 88 mg/dL (0-130); Magnesium 2.0 mg/dL (1.6-2.6); Osmolality,Calculated 279 (275-295); Phosphorous 2.7 mg/dL (2.4-5.1); Potassium 4.6 mMol/L (3.4-5.1); Sodium 141 mMol/L (136-145); Thyroid Stimulating Hormone 0.35 uIU/mL (0.55-4.78); Total Protein 6.9 gm/dL (5.7-8.2); Triglycerides 37 mg/dL (30-150); eGFR > 60 See Note
[2025-02-14 07:41] LABS: Free T4 (Free Thyroxine) 1.19 ng/dL (0.89-1.76)
[2025-02-14] MEDS: ACETAMINOPHEN 325 MG TABLET 650 MG PO (07:41)
[2025-02-14] MEDS: ASPIRIN EC 81 MG TABEC PO (08:15)
[2025-02-14] MEDS: SODIUM CHLORIDE 0.9% 1000 ML 1,000 ML 100 ML IV (08:15)
--- NOTE | 2025-02-14 08:24 | PC.NURSE ---
MEDICAL TEAM ROUNDING POC DISCUSSED. PT ALERT AND ORIENTED X4.
--- NOTE | 2025-02-14 09:26 | ESPR_ITS ---
<Statement entered by Ti Kelly MD - 02/14/25 13:56> Overnight admission. Seen and examined at bedside and patient resting comfortably in bed and states that his headache is reasonable at this time. He used to play football and states that he likely experienced a concussion as a child while playing. Describes headaches as episodic with associated rhinorrhea, lacrimation, and not relieved with pain medications. 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 He came in to the hospital because he was worried about blurry vision that had not happened before. Neurology recommended gabapentin and will follow-up if MRI is indicated. ----- Note reviewed and agree with care plan as documented. Please refer to the note below for further details. Plan discussed with attending physician Dr. Aggie Kelly MD PGY-2 Internal Medicine Documentation for date of: 02/14/25 Subjective Subjective Interval history: Mr. Montana is a 24-year-old male with a past medical history of Crohn's disease and asthma presents to the emergency department on 02/13/2025 with complaints of right-sided headache and blurry vision. 02/14/25: Overnight patient has a rapid response for severe anxiety and agitation, got Benadryl 25 mg and Ativan 1 mg. Patient was seen at bedside today morning. Patient had just woken up and was initially hesitant to answer questions and participate in physical but later warmed up and had a conversation. Food tray was in the room but patient mentioned he is afraid to eat as he is gonna have nausea, vomiting and stomach upset. Patient notes that he always has a pressure like sensation in his head but gets daily episodes of sharp excruciating pain on right side of the face including right eye, orbit, orthodox, cheek, jaw, and right shoulder. These episodes last anywhere from 10 mins to 2 hours. Exam Vital Signs Temp Pulse Resp BP Pulse Ox O2 Del Method 97.0 F 61 16 110/53 L 96 Room Air 02/14/25 08:00 02/14/25 08:00 02/14/25 08:00 02/14/25 08:00 02/14/25 08:00 02/14/25 08:00 Narrative Exam General: Alert, no acute distress.Conversational and non-toxic appearing. Skin: Warm, dry, intact. No rash or ecchymoses. HENT: Normocephalic, atraumatic. No tenderness to palpation over the right temporal region, with increased sensitivity around the temples. No visible swelling or deformities. Normal conjunctiva, PERRL. Cardiovascular: Regular rate and rhythm, no murmur, +S1/S2. Respiratory: Lungs are clear to auscultation, respirations unlabored, no crackles, no wheezing. Gastrointestinal: Soft, nontender, non-distended. No guarding or rebound tenderness. Extremities: No edema, no cyanosis, no clubbing. Neuro: Alert and oriented x3. No focal deficits observed. Conversant, moving all extremities. No overt cerebellar signs/incoordination. No deficit in sensory or motor function in UE and LE strength 5/5 bilaterally . Psychiatric: Cooperative, appropriate affect Objective Labs 02/14/25 05:37 02/14/25 05:37 Labs: Laboratory Results - last 24 hr 02/13/25 02/13/25 02/14/25 18:55 21:20 05:37 WBC 9.9 10.7 H RBC 4.90 4.85 Hgb 16.0 15.4 Hct 45.3 45.0 MCV 92 93 MCH 32.7 31.8 MCHC 35.3 34.2 RDW Std Deviation 45.5 H 45.5 H Plt Count 206 203 Neut % (Auto) 57 88 H Lymph % (Auto) 32 11 Fall[place] % (Auto) 7 1 Eos % (Auto) 3 0 Baso % (Auto) 0 0 Neut # (Auto) 5.7 9.4 H Lymph # (Auto) 3.2 1.2 Fallon # (Auto) 0.7 0.1 Eos # (Auto) 0.3 0.0 Baso # (Auto) 0.0 0.0 Immature Gran # (Auto) 0.02 H 0.05 H Absolute Nucleated RBC 0.00 0.00 Immature Gran % 0 1 H Nucleated RBC % 0 0 ESR 7 PT 11.2 INR 1.0 APTT 30.3 Sodium 141 141 Potassium 4.1 4.6 D Chloride 106 107 Carbon Dioxide 25.7 25.7 Anion Gap 9 8 BUN < 5 L 5 L Creatinine 0.8 0.9 Estim Creat Clear Calc Not Performed. 157.6 eGFR > 60 > 60 BUN/Creatinine Ratio 6 L 6 L Glucose [address] Glu mg/dL 103 Hemoglobin A1c 5.2 Calculated Osmolality 277 279 Calcium 10.3 9.9 Corrected Calcium 10.3 H 9.9 Phosphorus 2.7 Magnesium 1.9 2.0 Total Bilirubin 0.5 0.5 AST 21 15 ALT 10 9 L Alkaline Phosphatase 44 L 42 L Troponin I < 0.002 C-Reactive Prot, Quant < 0.5 Total Protein 7.3 6.9 Albumin 5.1 H 4.6 D Globulin 2.2 L 2.3 Albumin/Globulin Ratio 2.3 H 2.0 Triglycerides 37 Cholesterol 145 LDL Cholesterol, Calc 88 HDL Cholesterol 50 Cholesterol/HDL Ratio 2.9 L TSH 0.35 L Free T4 1.19 Ur Collection Type Clean Catch Urine Color Lt-Yellow Urine Clarity Clear Urine pH 8.0 H Ur Specific [place] 1.047 H Urine Protein Negative Urine Glucose (UA) Negative Urine Ketones Negative Urine Blood Negative Urine Nitrite Negative Urine Bilirubin Negative Urine Urobilinogen (Auto) Negative Ur Leukocyte Esterase Negative Urine RBC 3 Urine WBC 2 Ur Squamous Epith Cells < 1 Urine Bacteria None Ur Culture Indicated? Not Indicated Urine Opiates Screen Negative Urine Fentanyl Screen Negative Ur Barbiturates Screen Negative U Amphetamin/Meth Scrn Negative U Benzodiazepines Scrn Negative U Cocaine Metab Screen Negative U Marijuana (THC) Screen Positive A Quality Measures Quality Measures none Assessment & Plan Assessment Current Active Medications: Generic Name Dose Route Start Last Admin Trade Name Freq PRN Reason Stop Dose Admin Acetaminophen 650 mg 02/13/25 22:25 02/14/25 07:41 Acetaminophen 325 Mg Tablet PO 03/15/25 22:24 650 mg Q4HR PRN Administration Pain Scale 1-3 (Mild Aspirin 81 mg 02/14/25 09:00 02/14/25 08:15 Aspirin Ec 81 Mg Tabec PO 03/16/25 08:59 81 mg QDAY SERVANDO Administration Heparin Sodium (Porcine) 5,000 unit 02/13/25 23:00 02/14/25 05:54 Heparin Sod Inj 5000 Unit/Ml Vial SC 02/27/25 22:59 5,000 unit Q8HR SERVANDO Administration Sodium Chloride 1,000 mls @ 100 mls/hr 02/13/25 19:00 02/14/25 08:15 Ns IV 03/15/25 18:59 100 mls/hr .Q10H SERVANDO Administration Labetalol HCl 10 mg 02/14/25 00:23 Labetalol Inj 5 Mg/Ml Vial 20 Ml IVP Q15M PRN for bp >220/120 Lorazepam 1 mg 02/13/25 23:35 Lorazepam 0.5 Mg Tablet PO 02/18/25 23:34 Q6H PRN severe anxiety and agitation Ondansetron HCl 4 mg 02/13/25 18:50 Ondansetron Inj 2 Mg/Ml Inj 2 Ml IVP 03/15/25 18:49 Q4HR PRN NAUSEA OR VOMITING Plan Mr. Montana is a 24-year-old male with a past medical history of Crohn's disease, anxiety asthma presents to the emergency department on 02/13/2025 with complaints of right-sided headache, temporal pain, jaw pain, and diffuse right facial pain, and blurry vision in right eye. Admitted for CVA work up in the setting of migraine vs cluster headache. #Right sided severe headache, facial pain, numbness, and blurry vision. DDX: Cluster headache, Status migrainosus, r/o stroke, giant cell arteritis. Patient presented with acute onset worsening headache, right sided retro-orbital pain with blurry vision and decreased sensation to light touch in right upper and lower extremity of physical examination. Symptoms suggestive of cluster headache vs trigeminal neuralgia. 02/13/25 CT head showed is subtle low density in the left temporal lobe, consider acute nonhemorrhagic infarct at this level 02/13/25 CTA head/neck showed no carotid or vertebral artery stenosis and no cerebral large vessel arterial occlusions or thrombus Ocular pressure normal bilaterally. Tele neuro consulter reccommended admission for stroke r/o NIHSS Score:?1 -Neurologist Dr. Davenport was consulted and will follow, appreciate recommendations -Admitted to Telemetry -Head of bed elevation >30 degrees -Maintain euglycemia and normal temperature -Q4H neuro checks - Permissive HTN, labetalol on board for BP>220/120 -Nurse swallow screen -PT evaluation -Echocardiography with bubble study ordered (Checking with neuro if they would still like it). -MRI brain with and without contrast ordered (Checking with neuro if they would still like it). -Started aspirin 81 mg daily, loading dose given # Asymptomatic bradycardia On admission EKG showed sinus bradycardia with a rate of 55. - Continue to monitor #Hx of anxiety Pt has chronic history of anxiety. Earlier today he had severe anxiety for which rapid was called. See event note. Sister confirmed hx of anxiety untreated. - given x1 ativan and Benadryl IV, symptoms resolves -Started Ativan 1 mg every 6 hours as needed -Encouraged family to be at bedside # Hx Crohn's disease Patient reported is hx Crohn's that is well-controlled, not on any medications. Occasionally takes loperamide and another med for CD that he does not recall. -Pending med recc Health Maintenance: Code Status: Full DVT Prophylaxis: SCDs GI Prophylaxis: Protonix Diet: Regular Steele: None Lines: PIV Supplemental O2: High Flow 02 20L, 30 FiO2 Disposition: Home, pending workup for cluster headache vs trigeminal neuralgia. Patient seen and care discussed with my attending physician, Dr. Marcial and my senior resident Dr. Fer Kelly. Светлана Foley [facility] [place] Attending Provider Attestation/Addendum I, Erendira Marcial, , attest that I was physically present for the henderson portions of the service and evaluated the patient with the resident and I reviewed and discussed the case with the resident and agree with the resident's findings and plans of care as documented above Patient seen and evaluated this AM. Patient reports pressure like discomfort in right frontal and maxillary sinus on palpation. He states he has had these migraine like pains for several years, but what prompted him to come to the ED was blurry vision. He reports that the blurry vision is more central in his right visual field. Pain tends to radiate from his frontal and maxillary sinus down to the right side of his neck. Patient takes OTC pain medications, but usually with little resolution. He reports more discomfort from light. Symptoms may be secondary to status migranosis versus cluster headache. Will try supplemental O2 and imitrex if SEGURA comes on. Pending MRI otherwise as per neurology recommendations.
--- NOTE | 2025-02-14 10:27 | PC.SS ---
Patient is alert/oriented. Patient was able to verify demographics. Patient provided mailing address. However, he states he and his sister currently reside in a hotel on [address]. They just moved here from [place] then moved to [place] and now here. Patient has [facility]. No PCP. Patient states he just started a new job that he will be working 7 days a week. Patient states he's been experiencing headaches and blurry vision. Patient inquired about dental care. SS explained since he does not have a p.c.p. he can follow at any of the clinics to get established and [facility] has dental services as well. will provide a community resource list. Patient has his own transportation. Patient will return back to hotel they are temporarily staying at. Alt medical decision maker: Sister, London Westbrook, . D/c home
--- NOTE | 2025-02-14 12:40 | PC.NURSE ---
DR. LAGUERRE CALLED TO SPEAK WITH PATIENT.
--- NOTE | 2025-02-14 12:50 | PC.NURSE ---
PATIENT IS ALERT AND ORIENTED X4, DENIES DIZZINESS, WEAKNESS, VERBALIZES WANT TO SHOWER. DR. LANG GAVE OKAY FOR PATIENT TO TAKE SHOWER.
--- NOTE | 2025-02-14 15:49 | PC.PT ---
PT eval only. Patient is with transfers and ambulation without AD.
--- NOTE | 2025-02-14 20:20 | PC.NURSE ---
PT WANTING TO LEAVE AMA. STATES HE HAS THINGS TO DO AT HOME , HAS A SICK CHILD THAT HE NEEDS TO TAKE CARE OF. STATES THAT HE HAS BEEN WAITING ALL DAY FOR MRI BRAIN AND NOTHING HAS BEEN DONE. HIS SYMPTOMS HAVE IMPROVED AND STATES HE CAN FOLLOW UP WITH A PRIMARY DOCTOR AND ARRANGE FOR MRI OUTPATIENT. DR. SHELDON MADE AWARE. STATES SHE WILL COME UP AND SEE PATIENT. 2034-DR. SHELDON AND DR. ROACH AT BEDSIDE SPEAKING WITH THE PATIENT. 2038-IV AND TELEMETRY BOX REMOVED. PT DISCHARGED, AMBULATORY BY SELF. ALL BELONGINGS WITH PATIENT.
--- NOTE | 2025-02-15 00:21 | PD.RESEVENT ---
Documentation for date of: 02/15/25 Event Note Event Note: Patient Name: Gerry Montana Time of AMA: 8:29 PM Reason for AMA: Home stressors and family situation. Mr. Montana presented with concerns regarding his symptoms and expressed frustration with the delay in receiving a brain MRI. He reported waiting all day for the procedure no MRI had been performed. Due to personal stressors related to his home situation and family, he has decided to leave the hospital against medical advice. The patient was thoroughly informed of the risks and benefits of leaving the hospital against medical advice, including the potential for worsening symptoms or complications and the lack of a full diagnostic evaluation for stroke rule out. Despite these warnings, Mr. Montana expressed that his symptoms have improved, and he feels capable of following up with his primary care doctor to arrange for the MRI as an outpatient. The patient has agreed to follow up with his primary care provider for the necessary MRI and further management. Patient seen and assessed under supervision of attending physician and discuss with senior resident Dr. Up PGY-2 Laverne Navarro MD PGY-1, Internal Medicine Please note: this document was transcribed using voice recognition technology; minor inaccuracies may be present.
== END 2025-02-14 20:39 | disposition left against medical advice (07) | DRG 54 ==
LOC: SERX 20:47 → SERHOLD 21:53 → S2NX 22:25
PROVIDERS: Emergency Medicine; Admitting Provider Student in an Organized Health Care Education/Training Program; Emergency Provider Student in an Organized Health Care Education/Training Program; Visit Provider Student in an Organized Health Care Education/Training Program
DX: G43.901 Migraine, unspecified, not intractable, with status migrainosus (principal); R00.1 Bradycardia, unspecified; F41.9 Anxiety disorder, unspecified; F17.200 Nicotine dependence, unspecified, uncomplicated; J45.909 Unspecified asthma, uncomplicated; K50.90 Crohn's disease, unspecified, without complications; Z53.29 Procedure and treatment not carried out because of patient's decision for other reasons
CPT/HCPCS: 36415; 70450; 70496; 70498; 71045; 80053; 80061; 80307; 81001; 83036; 83735; 84100; 84439; 84443; 84484; 84703; 85025; 85610; 85652; 85730; 86140; 93005; 93306; 96360; 96361; 96372; 97161; 97162; 99284; A4649; J1100; J1200; J1644; J1885; J2765; J7030; J7050; Q9967; A9270